=== PATIENT | male | born 1955 | race Caucasian/White ===

== ENCOUNTER 2016-11-12 07:31 | Emergency (ER) | payer OTHER ==
[~2016-11-12] VITALS: Ht 190.5 cm; Wt 94.9 kg
[~2016-11-12 07:31] MED LIST: ADVAIR 250/501 DISK IH; ATARAX,VISTARIL25 MG PO; KENALOG,ARISTOC15 GM TP; LISINOPRIL5 MG PO; MECLIZINE HCL25 MG PO; METFORMIN HCL500 MG PO; NAPROSYN500 MG PO; PRAVASTATIN SOD40 MG PO; PREDNISONE10 M1 PO; PROAIR HFA8.5 GM IH; TRAMADOL HCL50 MG PO; VALIUM5 MG PO
[2016-11-12 09:27] VITALS: BP 124/82
[2016-11-12 09:39] LABS: APPEARANCE HAZY/YELLOW; RED CELL COUNT < 1000 /MM^3 (0-1); WHITE CELL COUNT 351 /MM^3 (0-200.0)
[2016-11-12 09:47] LABS: CRYSTALS NO CRYSTALS SEEN
[2016-11-12 10:07] LABS: MONO RAW COUNT 88; MONONUCLEAR WBC'S 88 %; POLY RAW COUNT 12; POLYNUCLEAR WBC'S 12 % (0-25); SYNOVIAL FLUID EOSINOPHILS 0 % (0-25)
== END 2016-11-12 09:28 | disposition home or self-care (01) ==
LOC: EME 07:31
PROVIDERS: Nurse Practitioner Family
PROC: 0S9D3ZZ Drainage of Left Knee Joint, Percutaneous Approach (ICD-10-PCS; principal; 2016-11-12)
DX: M25.462 Effusion, left knee (principal)
CPT/HCPCS: 87205; 89051; 99281; 99284

== ENCOUNTER 2017-09-19 14:15 | Emergency (ER) | payer OTHER ==
[~2017-09-19] VITALS: Ht 190.5 cm; Wt 98.1 kg
[2017-09-19 14:55] LABS: HEMATOCRIT 47.6 % (38.0-50.0); MCH 29.7 PG (29.0-34.0); MCHC 34.2 G/DL (30.0-36.0); MCV 86.9 FL (86-99); PLATELET COUNT 211 K/uL (156-360); RBC DIS.WIDTH-CV 13.2 % (11.8-14.6); RBC DIS.WIDTH-SD 42.2 % (39-53); RED BLOOD COUNT 5.48 M/uL (4.00-5.50); WHITE BLOOD COUNT 12.9 K/uL (4.1-10.2)
[2017-09-19 15:11] LABS: CHLORIDE 101 mEq/L (99-109); POTASSIUM 3.7 mEq/L (3.7-5.4); SODIUM 133 mEq/L (136-147)
[2017-09-19 15:13] LABS: GLUCOSE 176 mg/dL (70-99)
[2017-09-19 15:15] LABS: ANION GAP 11 MEQ/L (2-14); TOTAL BILIRUBIN 0.4 mg/dL (0.0-1.0)
[2017-09-19 15:17] LABS: ALKALINE PHOSPHATASE 107 IU/L (3-129); GFR ESTIMATE (CALCULATED) > 59 mL/min/
[2017-09-19 15:18] LABS: UREA NITROGEN (BUN) 26 mg/dL (9-23)
[2017-09-19 15:20] LABS: LIPASE 22 U/L (1.0-51.0)
[2017-09-19] MEDS ORDERED: LOVASTATIN40 MG PO (15:23)
[2017-09-19] MEDS ORDERED: PREDNISONE10 MG PO (15:24)
[2017-09-19] MEDS ORDERED: PROAIR HFA8.5 GM IH (15:24)
[2017-09-19] MEDS ORDERED: LEVOFLOXACIN500 MG PO (15:24)
[2017-09-19 15:44] LABS: TROP-I INTERPRETATION NEGATIVE; TROPONIN-I < 0.01 ng/mL (0.0-0.30)
[2017-09-19 15:53] LABS: ADD MIUA? YES; BILIRUBIN NEGATIVE; BLOOD MODERATE; COLOR YELLOW ((YELLOW)); GLUCOSE (STRIP) NEGATIVE; KETONES NEGATIVE; LEUKOCYTES NEGATIVE; NITRITE NEGATIVE; PROTEIN (STRIP) NEGATIVE; SPECIFIC GRAVITY 1.024 (1.000-1.030); UROBILINOGEN 0.2 MG/DL (0.2-1.0)
[2017-09-19 15:58] LABS: BACTERIA NONE SEEN /HPF; CALCIUM OXALATE CRYSTALS 1+ /HPF; EPITHELIAL CELLS NONE SEEN /HPF; HYALINE CASTS 0-5 /LPF; MUCUS TRACE /LPF; UCUL ADDED? NO; WHITE BLOOD CELLS 0-5 /HPF (0-5)
[2017-09-19] MEDS ORDERED: FLEXERIL10 MG PO (18:05)
[2017-09-19] MEDS ORDERED: NAPROSYN500 MG PO (18:05)
[2017-09-19 18:31] LABS: TROP-I INTERPRETATION NEGATIVE; TROPONIN-I < 0.01 ng/mL (0.0-0.30)
[2017-09-19 18:50] VITALS: BP 130/76
== END 2017-09-19 18:50 | disposition home or self-care (01) ==
LOC: EME 14:15
PROVIDERS: Physician Assistant
DX: R07.9 Chest pain, unspecified (principal); R10.12 Left upper quadrant pain; N28.1 Cyst of kidney, acquired; I10 Essential (primary) hypertension; E78.5 Hyperlipidemia, unspecified; E11.9 Type 2 diabetes mellitus without complications; Z79.84 Long term (current) use of oral hypoglycemic drugs; F17.200 Nicotine dependence, unspecified, uncomplicated
CPT/HCPCS: 71020; 74176; 80053; 81003; 83690; 84484; 85027; 93005; 99281; 99284